=== PATIENT | male | born 1960 | race Caucasian/White ===

== ENCOUNTER 2017-07-28 21:10 | Observation (INO) ==
[2017-07-28 21:27] LABS: Basophils # 0.1 K/mcL (0.0-0.2); Basophils % 0.6 %; Eosinophils # 0.2 K/mcL (0.0-0.6); Eosinophils % 2.4 %; Hemoglobin 14.8 g/dL (12.9-16.9); Immature Granulocytes % 0.4 % (0-4); Lymphocytes # 2.3 K/mcL (0.6-4.6); Lymphocytes % 28.3 %; Mean Corpuscular HGB Conc 33.6 g/dL (31.6-35.5); Mean Corpuscular Hemoglobin 30.5 pg (28.0-33.3); Mean Corpuscular Volume 90.7 fL (83.0-100.0); Mean Platelet Volume 9.7 fL (9.4-12.4); Monocytes # 0.5 K/mcL (0.0-1.3); Monocytes % 6.3 %; Neutrophils # 5.1 K/mcL (1.6-8.9); Platelet Count 216 K/mcL (140-400); Red Blood Count 4.85 M/mcL (4.19-5.50); Red Cell Distribution Width 12.5 % (11.5-14.5)
[2017-07-28 21:39] LABS: BUN/Creatinine Ratio 16 (6-26); Blood Urea Nitrogen 21 mg/dL (6-20); Calcium 9.2 mg/dL (8.6-10.3); Carbon Dioxide 25 mEq/L (23-29); Chloride 105 mEq/L (98-107); Glucose 133 mg/dL (70-105); Osmolality,Calculated 291 (280-300); Potassium 4.4 mEq/L (3.5-5.1); Sodium 138 mEq/L (136-145); eGFR For African Americans > 60 (> 60); eGFR For Non-African Americans 57 (> 60)
--- NOTE | 2017-07-28 21:40 | Emergency Department Note ---
Disposition Clinical Impression: Chest pain with moderate risk of acute coronary syndrome Disposition: Admitted As Inpatient Condition: Good Time of Disposition: 21:53 Chest Pain HPI - General Chief Complaint: ED Chest Pain Stated Complaint: CP Time Seen by Provider: 07/28/17 21:13 Source: patient, EMS Limitations: no limitations Vital Signs Reviewed: Yes Nursing Notes Reviewed: Yes - History of Present Illness HPI Narrative: Patient is a 57-year-old male that presents to the emergency department for having episodes of chest pain this evening and not feeling well. He states that the chest pain was into his left arm and into his back. He states that he was a tightness in his chest. He became nauseated, vomited and got diaphoretic. He says that this is somewhat similar to his previous heart attacks. He rates the pain as an 8 out of 10. Family states that it was so bad he was in tears. Patient states that he took some aspirin at home but the symptoms came back. Severity scale (1-10): 2 - Related Data Home Medications Medication Instructions Recorded Confirmed Acetaminophen [Tylenol] 500 mg PO Q6HR PRN 08/08/15 08/08/15 Previous Rx's Medication Instructions Recorded Atorvastatin [Lipitor] 40 mg PO HS #30 tablet 08/08/15 Allergies Allergy/AdvReac Type Severity Reaction Status Date / Time No Known Allergies Allergy Verified 08/07/15 23:00 All systems ED: reviewed and negative except as stated. Constitutional: Reports: other (diaphoretic) Cardiovascular: Reports: chest pain Gastrointestinal: Reports: nausea, vomiting Chest Pain PMH - Past Medical History Medical history: Reports: hypertension, myocardial infarction - Social History Smoking Status: Current every day smoker Alcohol use: Reports: occasionally Drug use: Reports: none Physical Exam - General Limitations: no limitations General appearance: alert, in no apparent distress - Head Head exam: atraumatic, normocephalic - Eye Eye exam: Present: normal appearance, EOMI - Neck Neck exam: Present: normal inspection, full ROM, trachea midline - Chest Chest inspection: Present: normal inspection, symmetric chest wall rise. Absent : tenderness - Respiratory Respiratory exam: Present: normal lung sounds bilaterally, wheezes (Mild wheezes bilaterally). Absent: respiratory distress - Cardiovascular Cardiovascular exam: Present: normal rhythm, tachycardia, normal heart sounds, + S1, +S2 - Abdominal Exam Abdominal exam: Present: soft, tenderness (Diffuse tenderness patient states is chronic), normal bowel sounds - Neurological Exam Neurological exam: Present: alert, oriented X3 - Psychiatric Psychiatric exam: Present: normal affect, normal mood - Skin Skin exam: Present: warm, dry, intact Course Vital Signs Temperature 99.4 F 07/28/17 21:11 Pulse Rate 94 07/28/17 21:11 Respiratory Rate 18 07/28/17 21:11 Blood Pressure 161/88 07/28/17 21:11 O2 Sat by Pulse Oximetry 96 07/28/17 21:11 Temperature 99.4 F 07/28/17 21:11 Pulse Rate 94 07/28/17 21:11 Respiratory Rate 18 07/28/17 21:11 Blood Pressure 161/88 07/28/17 21:11 O2 Sat by Pulse Oximetry 96 07/28/17 21:11 Oxygen Delivery Oxygen Delivery Room Air Chest Pain - MDM Narrative Medical decision making narrative: Due to the patient's symptoms and presenting history. Ordered a CBC, BMP, troponin, chest x-ray and EKG. EKG showed a sinus rhythm with no acute ischemic changes. Chest x-ray showed no acute process. Troponin was negative. Patient did have an elevated creatinine but otherwise his laboratory testing was unremarkable. The patient will need to be admitted to the hospital for ACS rule out. Patient is ready taken aspirin this evening so we will not administer any more here in the emergency department. I called spoke with the hospitalist was except the patient to their service the patient will be admitted to the hospital at this time. The patient is currently chest pain- free. - Medical Records Medical records reviewed: Yes I reviewed the patient's medical records. - Lab Data Lab results reviewed: Yes I reviewed the patient's lab results. - Radiology Data Radiology results reviewed: Yes I reviewed the patient's radiology results. Chest X-Ray 07/28/17 21:13 IMPRESSION: No acute process. D/ / Chin Gar MD / Chin Gar MD Interpreting Provider: Chin Gar MD - EKG Data EKG attestation: Yes I reviewed and interpreted this EKG. EKG results narrative: Patient's EKG showed a sinus rhythm at a rate of 99 bpm, UT interval of 168, QRS duration of 98, QTC of 380 with a normal axis. I do not note any acute ischemic changes on this EKG. She is compared to previous EKG on 08/08/15 which showed a sinus rhythm at a rate of 71 bpm.
--- NOTE | 2017-07-28 21:47 | Emergency Department Note ---
START Narrative - START START: I examined this patient and my medical decision-making was reviewed with the Resident Physician. I agree with the documented findings, disposition and treatment plan as described except to the extent set forth below. 57-year-old male presents to emergency room for chest pain. Diaphoresis shortness of breath left-sided chest pain into the left arm. No history of stents. No previous cardiac catheter. Chest pain-free at the moment. Did take some aspirin earlier today. We will admit for chest pain observation. EKG nondiagnostic. Troponin negative.
--- NOTE | 2017-07-28 22:25 | Internal Med History&Physical ---
Date of Encounter: 07/28/17 Time of Encounter: 22:20 Assessment and Plan (1) Chest pain with moderate risk of acute coronary syndrome Current visit: Yes Status: Acute Patient complaints of chest pain that radiated to his left shoulder and down his left arm that started today. He admits nausea, vomiting, and diaphoresis. The patient states that it feels similar to his previous heart attacks. No significant EKG changes. Chest x-ray were negative. Negative troponins. Patient has a history of hypertension, high cholesterol, and previous MS with no history of stents placed. Need to rule out ACS. 1. Place on continuous heart monitoring. 2. Track series of troponins. (2) History of MS (myocardial infarction) Current visit: Yes Status: Acute Patient admits a history of 2 MIs in the past but denies any stents placed. The patient has the risk factors of hypertension, hyperlipidemia, current smoker , and prior MS. Heart score of 5. Continue to monitor the patient closely. (3) Hyperlipidemia Current visit: No Status: Acute Continue home medications. Qualifiers: Hyperlipidemia type: unspecified Qualified Code(s): E78.5 - Hyperlipidemia , unspecified (4) HTN (hypertension) Current visit: No Status: Chronic Continue home medications. Qualifiers: Hypertension type: essential hypertension Qualified Code(s): I10 - Essential (primary) hypertension Internal Medicine - H&P: HPI Chief complaint: Chest pain Admitted From: Emergency Dept History of present illness: Mr. Garcia is a 57 year old male with a past medical history of myocardial infarction, hypertension, colitis, and high cholesterol who presents to the emergency department complaining of chest pain started around 7 PM tonight. The patient describes the chest pain feeling similar to his previous heart attacks and describes it as a "tooth ache feeling". The patient describes the chest pain starting in his left chest and radiating to his left shoulder and down his left arm. He admits nausea, vomiting, and diaphoresis. The patient admits he continues to smoke about 2 packs a day and states that he has not been taking his cholesterol medicine as prescribed. The patient currently denies any chest pain and shortness of breath at this time. He denies any fever , headaches, vision changes, shortness of breath, abdominal pain, changes in his bowel movements, dysuria, bloody urine, numbness and tingling, and any weaknesses. Past Med Surg Social Fam HX - Past Medical History Medical history: hypertension, myocardial infarction - Social History Smoking Status: Current every day smoker Alcohol use: occasionally Drug use: none - Family History Father Living Status: Hx Family Cardiac Disorders: Yes Mother Living Status: Hx Family Neurologic Disorders: Yes Internal Medicine - H&P: Meds Acetaminophen [Tylenol] 500 mg PO Q6HR PRN 08/08/15 [History] Atorvastatin [Lipitor] 40 mg PO HS #30 tablet 08/08/15 [Rx] 3 Allergy/AdvReac Type Severity Reaction Status Date / Time No Known Allergies Allergy Verified 08/07/15 23:00 All Systems PM: A 10-system review of systems was performed and is negative for pertinent findings except as documented above in the HPI. - Constitutional Vitals: Temp Pulse Resp BP Pulse Ox 99.4 F 96 18 163/86 95 07/28/17 21:11 07/28/17 22:06 07/28/17 22:06 07/28/17 22:06 07/28/17 22:06 - Head Head exam: Present: atraumatic, normocephalic - Eye Eye exam: Present: PERRL, conjuntiva pink, sclera anicteric Pupils: Present: PERRL - Neck Neck exam general surgery: Present: supple, trachea midline. Absent: lymphadenopathy - Respiratory Respiratory exam: Present: CTAB. Absent: accessory muscle use, rales, rhonchi, wheezes - Cardiovascular Cardiovascular exam: Present: RRR, +S1, +S2. Absent: diastolic murmur, gallop, rubs, systolic murmur - GI/Abdominal GI/Abdominal exam: Present: normal bowel sounds, soft, no peritoneal signs. Absent: distended, tenderness - Extremities Exam Extremities exam: Present: warm, radial pulses palpable and symmetrical. Absent : calf tenderness, cyanotic, pedal edema - Neurological Exam Neurological exam: Present: CN II-XII intact, oriented X3, no focal deficits. Absent: pronater drift, facial droop, speech deficit - Skin Skin exam: Present: dry, intact Internal Med - H&P Results - Labs CBC & Chem 7: 07/28/17 02:11 07/28/17 02:11 - EKG Data -: EKG Interpreted by Myself EKG shows normal: sinus rhythm Rate: normal
[2017-07-28] MEDS ORDERED: *HR* Morphine 2 MG/ML SYRINGE IVP PRN (23:11)
[2017-07-28] MEDS ORDERED: Acetaminophen 325 MG TABLET PO PRN (23:11)
[2017-07-28] MEDS ORDERED: Naloxone 0.4 MG/ML INJ IVP PRN (23:11)
[2017-07-28] MEDS ORDERED: Ondansetron 4 MG/2 ML VIAL IVP PRN (23:11)
[2017-07-28] MEDS ORDERED: Nitroglycerin 0.4 MG TAB.SUBL SL PRN (23:19)
[2017-07-28] MEDS ORDERED: Aspirin 325 MG TABLET PO ONE (23:20)
[2017-07-29 00:47] LABS: INR 0.9; Prothrombin Time 10.1 Seconds (9.4-12.1)
[2017-07-29 01:40] LABS: BUN/Creatinine Ratio 19 (6-26); Blood Urea Nitrogen 21 mg/dL (6-20); Calcium 9.1 mg/dL (8.6-10.3); Carbon Dioxide 25 mEq/L (23-29); Chloride 105 mEq/L (98-107); Chol/HDL Ratio 8.9 (0-4.9); Cholesterol 239 mg/dL (< 200); Glucose 103 mg/dL (70-105); HDL Cholesterol 27 mg/dL (40-59); Magnesium 2.2 mg/dL (1.6-2.6); Osmolality,Calculated 289 (280-300); Phosphorous 3.5 mg/dL (2.7-4.5); Potassium 4.2 mEq/L (3.5-5.1); Sodium 138 mEq/L (136-145); Triglycerides 757 mg/dL (< 150); eGFR For African Americans > 60 (> 60); eGFR For Non-African Americans > 60 (> 60)
--- NOTE | 2017-07-29 09:10 | Cardiology Consult Note ---
Date of Encounter: 07/29/17 Time of Encounter: 09:00 Assessment and Plan Discussion w patient/family: The assessment and plan as outlined above was discussed with the patient and/or family members who expressed understanding and agreement. All questions were answered. Thank you for involving us in the care of your patient. Please call with any questions. History of Present Illness Consult date: 07/29/17 Chief complaint: Chest Pain History of present illness: Mr. Garcia is a 57 year old male Past Med Surg Social Fam HX - Past Medical History Medical history: hypertension, myocardial infarction - Social History Smoking Status: Current every day smoker Packs per day: 1.5 Alcohol use: occasionally Drug use: none - Family History Mother Living Status: Hx Family Neurologic Disorders: Yes Father Living Status: Hx Family Cardiac Disorders: Yes Medications and Allergies Acetaminophen [Tylenol] 500 mg PO Q6HR PRN 08/08/15 [History] Atorvastatin [Lipitor] 40 mg PO HS #30 tablet 08/08/15 [Rx] 3 Allergy/AdvReac Type Severity Reaction Status Date / Time No Known Allergies Allergy Verified 08/07/15 23:00 All Systems Review: A 10-system review of systems was performed and is negative for pertinent findings except as documented above in the HPI. Physical Examination Vital Signs, Last 4 Hours Temp Pulse Resp BP Pulse Ox 07/29/17 07:08 97.8 F 72 17 155/93 96 Results 07/28/17 02:11 07/29/17 00:11 Lab Results 07/29/17 07/29/17 07/29/17 00:11 00:11 00:11 INR 0.9 Sodium 138 Potassium 4.2 Chloride 105 Carbon Dioxide 25 BUN 21 H Creatinine 1.11 Glucose 103 Calcium 9.1 Magnesium 2.2 Troponin I < 0.03 Consult Discharge Plan - Plan
[2017-07-29] MEDS ORDERED: Regadenoson 0.4 MG/5 ML SYRINGE IVP ONE (10:04)
--- NOTE | 2017-07-29 10:20 | Internal Med Progress Note ---
Date of Encounter: 07/29/17 Time of Encounter: 10:18 - Assessment and plan (1) CAD (coronary artery disease) Current Visit: Yes Status: Acute Assessment and plan: with hx prior MIs. Does not following Cardiology, not on ASA at home. Now with lower back pain that radiated to chest which was similar to last [place]. CP now resolved. Serial troponin negative. EKG without acute ST changes. Stress test pending. Consult Cardiology if needed, Qualifiers: Coronary Disease-Associated Artery/Lesion type: [place] artery [place] vs. transplanted heart: [place] heart Associated angina: with unstable angina Qualified Code(s): I25.110 - Atherosclerotic heart disease of [place] coronary artery with unstable angina pectoris (2) HTN (hypertension) Current Visit: No Status: Chronic Assessment and plan: not on the antihypertensives at home. With SBP's and 150s to 160s. Start low- dose amlodipine. Qualifiers: Hypertension type: essential hypertension Qualified Code(s): I10 - Essential (primary) hypertension (3) Hypertriglyceridemia, essential Current Visit: Yes Status: Acute Assessment and plan: Triglycerides 757 (previously 251 04/2017). Non-complaint woyh home statin and diet. Start gemfibrozil. Strong;y encouraged dietary and lifestyle modifications. Recommend repeat lipid profile in 8-12 weeks with PCP (4) DVT prophylaxis Current Visit: No Status: Acute Assessment and plan: heparin - Time Spent With Patient less than 15 minutes - Subjective Interval history: Seen and examined at bedside. Patient is new to me, information obtained from chart review and patient report. Laying in bed, no acute distress. Says he feels significantly improved, denies chest pain, no shortness of breath. He would like to discharge home today if workup is unremarkable. - Constitutional Vitals: Temp Pulse Resp BP Pulse Ox 97.8 F 72 17 155/93 96 07/29/17 07:08 07/29/17 07:08 07/29/17 07:08 07/29/17 07:08 07/29/17 07:08 General appearance: Present: A&O X 3, no acute distress - Head Head exam: Present: atraumatic, normocephalic - Eye Eye exam: Present: PERRL, conjuntiva pink, sclera anicteric Pupils: Present: PERRL - Neck Neck exam general surgery: Present: supple, trachea midline. Absent: lymphadenopathy - Respiratory Respiratory exam: Present: CTAB. Absent: accessory muscle use, rales, rhonchi, wheezes Additional comments: Right upper lobe chest tube with Heimlich valve - Cardiovascular Cardiovascular exam: Present: RRR, +S1, +S2. Absent: diastolic murmur, gallop, rubs, systolic murmur - GI/Abdominal GI/Abdominal exam: Present: normal bowel sounds, soft, no peritoneal signs. Absent: distended, tenderness - Extremities Exam Extremities exam: Present: warm, radial pulses palpable and symmetrical. Absent : calf tenderness, cyanotic, pedal edema - Neurological Exam Neurological exam: Present: CN II-XII intact, oriented X3, no focal deficits. Absent: pronater drift, facial droop, speech deficit - Skin Skin exam: Present: dry, intact Internal Medicine: Result - Labs CBC & Chem 7: 07/28/17 02:11 07/29/17 00:11 Labs: BMP 07/29/17 00:11 Sodium 138 Potassium 4.2 Chloride 105 Carbon Dioxide 25 BUN 21 H Creatinine 1.11 Glucose 103 Calcium 9.1 Cardiac Enzymes 07/29/17 Range/Units 00:11 Troponin I < 0.03 (< 0.04) ng/mL - ABG Interpretation ABG results: PT/INR, D-dimer PT 10.1 Seconds (9.4-12.1) 07/29/17 00:11 Consult Discharge Plan - Plan Referrals: Jeannine Barry, CL[employer] [Primary Care Provider] -
[2017-07-29] MEDS ORDERED: amLODIPine 5 MG TABLET PO SCH (10:30)
[2017-07-29] MEDS ORDERED: Aspirin 81 MG TAB.CHEW PO SCH (10:30)
[2017-07-29] MEDS ORDERED: *HR* Heparin 5,000 UNIT/ML VIAL SQ SCH (14:00)
--- NOTE | 2017-07-29 15:28 | Discharge Summary ---
Date of Encounter: 07/28/17 Time of Encounter: 15:26 - Discharge Diagnosis (1) CAD (coronary artery disease) Priority: Primary Status: Chronic Comments: with hx prior MIs. Does not following Cardiology, not on ASA at home. Now with lower back pain that radiated to chest which was similar to last [place]. CP now resolved. Serial troponin negative. EKG without acute ST changes. Stress test negative for infarct, ischemia. TTE with EF 55%, mild diastolic dysfunction, no wall motion abnormalities. Chest pain resolved at time of discharge. Cardiology follow-up scheduled. Continue ASA, and statin. Qualifiers: Coronary Disease-Associated Artery/Lesion type: [place] artery [place] vs. transplanted heart: [place] heart Associated angina: without angina Qualified Code(s): I25.10 - Atherosclerotic heart disease of [place] coronary artery without angina pectoris (2) HTN (hypertension) Priority: Primary Status: Acute Comments: not on the antihypertensives at home. With SBP's and 150s to 160s; likely secondary to not receiving home BP medication. Resume home ZOHAIB. Recommend follow-up with PCP within one week for BP recheck. Qualifiers: Hypertension type: essential hypertension Qualified Code(s): I10 - Essential (primary) hypertension (3) Hypertriglyceridemia, essential Priority: Primary Status: Acute Comments: Triglycerides 757 (previously 251 04/2017). Non-complaint with home statin and diet. Start gemfibrozil. Strongly encouraged dietary and lifestyle modifications. Recommend repeat lipid profile in 8-12 weeks with PCP - Discharge Medications Prescriptions: Aspirin 81 mg PO DAILY #30 tab.chew Atorvastatin [Lipitor] 40 mg PO HS #30 tablet Gemfibrozil [Lopid] 600 mg PO BIDAC #60 tablet Home Medications: Acetaminophen [Tylenol] 500 mg PO Q6HR PRN 08/08/15 [History] Aspirin 81 mg PO DAILY #30 tab.chew 07/29/17 [Rx] Aspirin [Lo-Dose Aspirin EC] 81 mg PO DAILY 07/29/17 [History] Atorvastatin [Lipitor] 40 mg PO HS #30 tablet 07/29/17 [Rx] BuPROPion SR (12 HR) [Wellbutrin SR] 150 mg PO BID 07/29/17 [History] Gemfibrozil [Lopid] 600 mg PO BIDAC #60 tablet 07/29/17 [Rx] Lisinopril [Zestril] 5 mg PO DAILY 07/29/17 [History] Allergies/Adverse Reactions: 3 Allergy/AdvReac Type Severity Reaction Status Date / Time No Known Allergies Allergy Verified 08/07/15 23:00 Procedures/tests Complete & Pending: Procedures Performed prior 72 hours Category Date Time Status NM dave perf SPECT multi [NM] Routine Exams 07/29/17 08:50 Taken EV echocardiogram Routine Y 07/29/17 14:59 Ordered SP pharm nuclear stress Routine Y 07/29/17 08:50 Completed Date of admission: 07/28/17 22:03 Primary care physician: Jeannine Barry Discharging clinician: Deirdre Castillo Anticipated date of discharge: 07/29/17 - Patient Status Disposition: Home, Self-Care Condition: Good - Discharge Instructions Instructions: Aspirin (By mouth), Fenofibrate (By mouth), Coronary Artery Disease (DC), Chest Pain (DC) Follow Up With: Obed Quintero MD [Partnered Physician] - 08/18/17 9:55 am Jeannine Barry, BRENDA [Primary Care Provider] - Forms: ED Satisfaction Letter - Diet and Activity Activity: increase activity as tolerated Diet: low fat, low cholesterol, low salt diet Interval History: See 07/28/2017 progress note for interval history Hospital course: See assessment and plan for hospital course - Time Spent with Patient Total time spent providing and/or coordinating discharge services: - Constitutional Vitals: Temp Pulse Resp BP Pulse Ox 97.8 F 72 17 155/93 96 07/29/17 07:08 07/29/17 07:08 07/29/17 07:08 07/29/17 07:08 07/29/17 07:08 General appearance: Present: A&O X 3, no acute distress - Head Head exam: Present: atraumatic, normocephalic - Eye Eye exam: Present: PERRL, conjuntiva pink, sclera anicteric Pupils: Present: PERRL - Neck Neck exam general surgery: Present: supple, trachea midline. Absent: lymphadenopathy - Respiratory Respiratory exam: Present: CTAB. Absent: accessory muscle use, rales, rhonchi, wheezes - Cardiovascular Cardiovascular exam: Present: RRR, +S1, +S2. Absent: diastolic murmur, gallop, rubs, systolic murmur - GI/Abdominal GI/Abdominal exam: Present: normal bowel sounds, soft, no peritoneal signs. Absent: distended, tenderness - Extremities Exam Extremities exam: Present: warm, radial pulses palpable and symmetrical. Absent : calf tenderness, cyanotic, pedal edema - Neurological Exam Neurological exam: Present: CN II-XII intact, oriented X3, no focal deficits. Absent: pronater drift, facial droop, speech deficit - Skin Skin exam: Present: dry, intact
--- NOTE | 2017-07-29 16:51 | Electrocardiograph Report ---
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
[2017-07-29 18:58] VITALS: BP 142/81
== END 2017-07-29 21:04 | disposition home or self-care (01) ==
LOC: EMEROO 21:10 → 3BNU 21:10
PROVIDERS: ADMIT Internal Medicine; ATTEND Registered Nurse